=== PATIENT | male | born 1940 | race Caucasian/White ===

== ENCOUNTER 2017-02-03 13:25 | Emergency (ER) | payer MEDICARE, OTHER ==
[~2017-02-03] VITALS: Ht 188 cm; Wt 109.5 kg
--- NOTE | 2017-02-03 13:32 | ED.REPORT ---
HPI-General Illness Date of Service Feb 03, 2017 ED Provider: Dr. Mortensen Pt is a 76 y/o male anticoagulated on Warfarin w/ a hx of CVA, HTN, NIDDM, hyperlipidemia presenting to the ED via EMS with his due to head injury secondary to mechanical ground level fall which occurred prior to arrival. The patient was walking into the clinic for a F/U neurology appointment with Dr. Wills when his walker hit the curb of the sidewalk causing him to fall and hit his head. He c/o forehead pain, complete right shoulder focal weakness which is now resolved. Pt denies numbness, neck pain, abdominal pain, vomiting, change in LOC, extremity pain. His INR was 1.6 a few days ago. Nursing Notes Stated Complaint: GENERAL Nursing Notes Reviewed: Yes Allergies: Coded Allergies: No Known Allergies (Unverified , 02/03/17) General Time Seen by MD: 13:32 Chief Complaint Other (head injury) Hx Obtained From: Patient, Spouse, EMS Arrived By: Ambulance Sudden in Onset?: Yes Onset Occurred: Just prior to arrival Symptom Duration: 1 - 15 minutes Location: : Head Quality: Aching Severity: Current: Mild Severity: Maximum: Mild Past Medical History Past Medical History CVA Left carotid artery stenosis Carpal tunnel syndrome Hypertension NIDDM Hyperlipidemia Past Surgical History Unknown Smoking History Unknown if Ever Smoker Social History Drug Use: Denies drug use Other Social History: Good social support, Ambulatory Status Walker Review of Systems Full Review of Systems Constitutional: Denies: Chills, Fever Respiratory: Denies: Non-productive cough, Shortness of breath Cardiovascular: Denies: Chest pain, Dyspnea on exertion GI: Denies: Abdominal pain, Nausea, Vomiting Musculoskeletal: Denies: Extremity swelling, Joint pain Neurologic: Reports: Focal weakness, Headache, Denies: Change LOC, Confusion, Dizziness, Lightheaded, Numbness, Problem walking, Syncope Complete sys rev & neg: except as marked. Physical Exam Vital Signs Vital Signs Date Time Temp Pulse Resp B/P Pulse Ox O2 Delivery O2 Flow Rate FiO2 02/03/17 16:10 61 161/79 97 Room Air 02/03/17 13:36 36.5 54 18 162/66 98 Room Air Initial VS: Reviewed, Vital signs abnormal ENT: Mucous membranes moist, Conjunctiva normal, No scleral icterus Respiratory: Breath sounds normal, Clear to auscultation, No respiratory distress Cardiovascular: Regular rate & rhythm, Heart sounds normal, Intact distal pulses Abdomen / GI: Soft, Non-tender, No guarding, No rebound, No distention Skin: Warm, Dry, No cyanosis Psychiatric: Mood/affect normal, Behavior normal, Normal thought content General/Constitutional: Awake, Alert, No acute distress, Cooperative, Not toxic appearing Head / Eyes: Normocephalic, PERRL, EOMI Right-sided facial abrasion Upper Extremities Upper Extremity / MS: Full range of motion, No snuffbox tenderness, No erythema , No deformity, Neurologic intact, Vascular intact, No compartment syndrome, No circumferential injury, No clubbing/cyanosis, No edema Superficial abrasions over both hands Lower Extremity / Pelvis / MS: Full range of motion, No deformity, Neurologic intact, Vascular intact, Pelvis stable Superficial abrasions over both knees Skin tear to right calf Neurologic: Oriented X3, Speech NL, No motor deficits, No sensory deficits, CN II - XII intact, Cerebellar NL, Memory NL Interpretation & Diagnostics Lab Results Interpretation Test 02/03/17 12:15 02/03/17 14:15 Hold Purple Top Tube Received (Received) Hold Red Top Tube Received (Received) Hold [place] Top Tube Received (Received) Hold Cantu Top Tube Received (Received) Prothrombin Time 14.2sec (8.1-12.5) Prothromb Time International Ratio 1.32ratio CT Head Interpretation IMPRESSION: 1. No acute intracranial abnormality. 2. Volume loss and small vessel ischemic disease. 3. Small chronic right caudate head infarct. Small chronic versus subacute bilateral thalamic infarcts. Dictated by: Michael Gutierrez M.D. on 02/03/2017 at 14:07 Approved by: Michael Gutierrez M.D. on 02/03/2017 at 14:08 Study: Head CT no contrast Interpretation / Wet Read by: Interpret - Radiologist CT C-Spine Interpretation IMPRESSION: 1. Multiple degenerative changes without a visualized fracture. 2. Partially visualized prominent mediastinal adenopathy. Further evaluation is recommended. While this could be reactive in nature, other etiologies such as neoplastic cannot be excluded. Dictated by: Joan Martin M.D. on 02/03/2017 at 14:24 Approved by: Joan Martin M.D. on 02/03/2017 at 14:28 Study type: CT no contrast Interpretation / Wet Read by: Interpret - Radiologist Re-Eval/Medical Decision Med Decision/Clinical Course Mechanical type, fall, patient was going to a routine office visit. No indication for labs beyond an INR. Head and C-spine are unremarkable, patient's C-spine is cleared based on Nexus criteria. He seems to be at his normal functional baseline. Multiple abrasions are cleansed and dressed. He is prescribed oxycodone for pain, he is prescribed a wheelchair at the request of his though it seems that he is stable to walk on his own 2 feet with frontwheel walker. Return in follow-up precautions are given. Time of Eval: 14:40 Re-Evaluation/Progress Note: C-spine cleared by nexus criteria Time of Eval: 15:22 Re-Evaluation/Progress Note: Pt rechecked. Informed pt of plan for treatment. Pt understands and agrees with plan for treatment. F/U instructions and RTER warnings given. All questions addressed. Counseled Regarding: Diagnosis, Lab results, Need for follow-up, When/why to return to ED Discharge & Departure Primary Impression: Head injury Encounter type: initial encounter Qualified Code: S09.90XA - Unspecified injury of head, initial encounter Additional Impressions: Anticoagulated on warfarin Fall from ground level Multiple abrasions Disposition: Home Discharge Condition All VS Reviewed: Yes Condition: Stable Patient Instructions: Minor Head Injury (ED) Additional Instructions: The head CT scan today was normal. There was no sign of bleeding in the brain. The neck CT scan was also normal, there was no sign of fracture. Your INR (Coumadin level) is 1.32. Return to the emergency department for severe headache, one-sided numbness or weakness, vision changes, speech changes, persistent vomiting, or for other concerning symptoms. Follow-up with your regular doctor early next week. Referrals: Lenny Wills MD (PCP) Monyiblouise Attestation Portions of this note were transcribed by Emanuel Vázquez. I, Dr. Mortensen, personally performed the history, physical exam and medical decision-making; I reviewed and confirmed the accuracy of the information in the transcribed note. Signed by Kwaku Lozano, 02/03/17 - 1500 copies to: Lenny Wills MD, Timothy Herbert HAJI Feb 03, 2017 13:32 EMANUEL VÁZQUEZ Feb 03, 2017 14:04
[2017-02-03 13:36] VITALS: BP 162/66; PULSE 54; RESP 18; O2SAT 98
--- NOTE | 2017-02-03 14:10 | DRSVH ---
PROCEDURE: CT BRAIN WITHOUT CONTRAST ([id number]) INDICATIONS: GLF with head trauma, coumadin TECHNIQUE: Noncontrast 4.5 mm thick angled axial sections acquired from the foramen magnum to the vertex, with c oronal reformats. COMPARISON: None. FINDINGS: Image quality: Excellent. CSF spaces: Basal cisterns are patent. No extra-axial fluid collections. The ventricles are symmet dieter in size and shape. Brain: No intracranial bleeds or masses. Small chronic versus subacute bilateral thalamic infarcts a re present. Small chronic right caudate head infarct. There is cerebral volume loss for age, with res ultant ventricular and sulcal prominence. There are periventricular and deep white matter chronic sm all vessel ischemic changes. There is intracranial internal carotid artery atherosclerosis. Skull and face: Calvarium and visualized facial bones appear intact, without suspicious lesions. Sinuses: Visualized sinuses and mastoids are clear. IMPRESSION: 1. No acute intracranial abnormality. 2. Volume loss and small vessel ischemic disease. 3. Small chronic right caudate head infarct. Small chronic versus subacute bilateral thalamic infarct s. Dictated by: Michael Gutierrez M.D. on 02/03/2017 at 14:07 Approved by: Michael Gutierrez M.D. on 02/03/2017 at 14:08
--- NOTE | 2017-02-03 14:29 | DRSVH ---
PROCEDURE: CT CERVICAL SPINE WITHOUT CONTRAST ([id number]) INDICATIONS: GLF with head trauma, coumadin TECHNIQUE: Noncontrast 3 mm thick sections acquired from the skull base to the T4 level. Sagittal and coronal r eformats were then constructed. For radiation dose reduction, the following was used: automated exp osure control, adjustment of mA and/or kV according to patient size. COMPARISON: None. FINDINGS: Image quality: Excellent. Bones: No fractures or dislocations. There is trace retrolithesis of C3 on C4, C5 on C6, C6 on C7. Visualized superior ribs are intact. Multilevel degenerative changes are present throughout the cer vical spine. Soft tissues: Prevertebral soft tissues are normal in thickness. No paravertebral hematomas. Partia lly visualized right pleural effusion. There is partially visualized extensive mediastinal adenopathy . IMPRESSION: 1. Multiple degenerative changes without a visualized fracture. 2. Partially visualized prominent mediastinal adenopathy. Further evaluation is recommended. While th is could be reactive in nature, other etiologies such as neoplastic cannot be excluded. Dictated by: Joan Maritn M.D. on 02/03/2017 at 14:24 Approved by: Joan Martin M.D. on 02/03/2017 at 14:28
[2017-02-03 14:56] LABS: INR 1.32 ratio
[2017-02-03 16:10] VITALS: BP 161/79; PULSE 61; O2SAT 97
== END 2017-02-03 16:10 | disposition home or self-care (01) ==
LOC: EDUNIT# 13:25 → SED 13:25 → EDBD 13:25 → SED 16:10
DX: S81.811A Laceration without foreign body, right lower leg, initial encounter (principal); S09.90XA Unspecified injury of head, initial encounter; S00.81XA Abrasion of other part of head, initial encounter; S60.511A Abrasion of right hand, initial encounter; S60.512A Abrasion of left hand, initial encounter; W18.39XA Other fall on same level, initial encounter; Y93.01 Activity, walking, marching and hiking; Y92.480 Sidewalk as the place of occurrence of the external cause; Y99.8 Other external cause status; I10 Essential (primary) hypertension; E11.9 Type 2 diabetes mellitus without complications; E78.5 Hyperlipidemia, unspecified; Z79.01 Long term (current) use of anticoagulants; Z86.73 Personal history of transient ischemic attack (TIA), and cerebral infarction without residual deficits